=== PATIENT | female | born 1965 | race Caucasian/White ===

== ENCOUNTER 2020-12-16 02:02 | Inpatient (IN) | payer MEDICAID ==
[~2020-12-16] VITALS: Ht 157.5 cm; Wt 87.1 kg
[2020-12-16 02:21] LABS: HEMOGLOBIN 9.6 gm/dl (12.3-15.3); RED BLOOD COUNT 3.75 M/UL (4.00-5.10); WHITE BLOOD COUNT 5.3 K/UL (4.5-11.0)
[2020-12-16 03:47] LABS: BUN/CREATININE RATIO 20 (0-10)
--- NOTE | 2020-12-16 10:26 | NUR ---
PT ARRIVED FROM ED AT APPROX. 0940 ON STRETCHER. UPON INITIAL ASSESSMENT PT WAS UNDER NO DISTRESS AND ABLE TO ANSWER QUESTIONS APPROPRIATELY. PHYSICAL ASSESMENT COMPLETED. SEE DATA BASE 2. PT ON CARDIZEM AND AMIO INFUSIONS. HR IN 130'S AT THIS TIME. WILL CONTINUE TO MONITOR.
[2020-12-16] MEDS ORDERED: PROTONIX 40 MG40 M1 PO (10:35)
[2020-12-16] MEDS ORDERED: LASIX80 MG PO (10:35)
[2020-12-16] MEDS ORDERED: ALDACTONE50 MG PO (10:36)
[2020-12-16] MEDS ORDERED: LOPRESSOR 25 MG25 MG PO (10:36)
[2020-12-16] MEDS ORDERED: LEXAPRO10 MG PO (10:36)
--- NOTE | 2020-12-17 22:12 | NUR ---
PATIENT COMPLAINING OF SEVERE HEADACHE AND REQUESTING PAIN MEDICATION WHILE EATING A SANDWHICH AND CHIPS. HER TYLENOL #3 IS NOT DUE UNTIL 11. OFFERED TO GIVE HER A PRN TYLENOL AND SHE STATES, " TYLENOL AND MOTRIN NEVER WORK" CALLED [facility] PER HER REQUEST TO GET SOMETHING MORE.
[2020-12-18 03:34] LABS: HEMOGLOBIN 8.5 gm/dl (12.3-15.3); WHITE BLOOD COUNT 4.3 K/UL (4.5-11.0)
[2020-12-18 03:59] LABS: BUN/CREATININE RATIO 20 (0-10)
[2020-12-18 04:00] LABS: RED BLOOD COUNT 3.14 M/UL (4.00-5.10)
[2020-12-19 03:10] LABS: HEMOGLOBIN 9.1 gm/dl (12.3-15.3); RED BLOOD COUNT 3.4 M/UL (4.00-5.10); WHITE BLOOD COUNT 5.3 K/UL (4.5-11.0)
[2020-12-19 03:38] LABS: BUN/CREATININE RATIO 20 (0-10)
[2020-12-19] MEDS ORDERED: CHRONULAC20 GM/30 M PO (10:17)
[2020-12-19] MEDS ORDERED: ALDACTONE 25MG25 MG PO (10:17)
[2020-12-19] MEDS ORDERED: PROTONIX 40 MG40 M1 PO (10:17)
[2020-12-19] MEDS ORDERED: LOPRESSOR 25 MG25 MG PO (10:17)
[2020-12-19] MEDS ORDERED: FUROSEMIDE20 MG PO (10:17)
== END 2020-12-19 14:58 | disposition home or self-care (01) | DRG 273 ==
LOC: ER1 02:02 → CCU 06:31 → CDU 06:31 → PROG CARE 06:31 → CCU 09:47 → PROG CARE 12-17 09:20
PROVIDERS: Family Medicine; Internal Medicine; ADMIT Surgery
PROC: B24BZZZ Ultrasonography of Heart with Aorta (ICD-10-PCS; 2020-12-16)
PROC: 02583ZZ Destruction of Conduction Mechanism, Percutaneous Approach (ICD-10-PCS; principal; 2020-12-17)
PROC: 02K83ZZ Map Conduction Mechanism, Percutaneous Approach (ICD-10-PCS; 2020-12-17)
DX: I48.92 Unspecified atrial flutter (principal); I21.4 Non-ST elevation (NSTEMI) myocardial infarction; K92.2 Gastrointestinal hemorrhage, unspecified; I48.0 Paroxysmal atrial fibrillation; Z79.01 Long term (current) use of anticoagulants; D64.9 Anemia, unspecified; Z20.822 Contact with and (suspected) exposure to COVID-19; K70.30 Alcoholic cirrhosis of liver without ascites; F17.210 Nicotine dependence, cigarettes, uncomplicated; K21.9 Gastro-esophageal reflux disease without esophagitis; I27.20 Pulmonary hypertension, unspecified; I08.1 Rheumatic disorders of both mitral and tricuspid valves; F41.9 Anxiety disorder, unspecified; F32.9 Major depressive disorder, single episode, unspecified; Z82.49 Family history of ischemic heart disease and other diseases of the circulatory system; Z86.718 Personal history of other venous thrombosis and embolism; Z98.890 Other specified postprocedural states; Z93.0 Tracheostomy status
CPT/HCPCS: ECHO; 36415; 71045; 80053; 82550; 82553; 82607; 82728; 82746; 83540; 83550; 83735; 83874; 83880; 84439; 84443; 84484; 85025; 85027; 85379; 85610; 93005; 93306; 93609; 93620; 96374; 96375; 96376; 99152; 99153; 99285; C1730; C1733; C1766; J1200; J1644; J2250; J2270; J2405; J3010; J7040; Q9967; U0002

== ENCOUNTER → 2021-01-25 | Outpatient (CLI) | payer OTHER ==
[~2021-01-25] MED LIST: ALDACTONE 25MG25 MG PO; ALDACTONE50 MG PO; CHRONULAC20 GM/30 M PO; FUROSEMIDE20 MG PO; LASIX80 MG PO; LEXAPRO10 MG PO; LOPRESSOR 25 MG25 MG PO; PROTONIX 40 MG40 M1 PO
[2021-01-25 13:54] LABS: HEMOGLOBIN 10.1 gm/dl (12.3-15.3); RED BLOOD COUNT 3.83 M/UL (4.00-5.10); WHITE BLOOD COUNT 4.9 K/UL (4.5-11.0)
[2021-01-25 14:28] LABS: BUN/CREATININE RATIO 29 (0-10)
== END ==
LOC: LAB 12:42
PROVIDERS: Nurse Practitioner Family
DX: Z13.21 Encounter for screening for nutritional disorder (principal)
CPT/HCPCS: 36415; 80053; 80061; 82607; 83036; 84439; 84443; 85025

== ENCOUNTER → 2021-02-10 | Outpatient (CLI) | payer OTHER | LOC: EXRD 10:12 | DX: I82.409 Acute embolism and thrombosis of unspecified deep veins of unspecified lower extremity (principal); M79.604 Pain in right leg; M79.605 Pain in left leg | CPT/HCPCS: 93970 ==